=== PATIENT | female | born 2000 | race African-American/Black ===

== ENCOUNTER 2020-05-22 14:04 | Emergency (ER) | payer MEDICAID, OTHER ==
[~2020-05-22] VITALS: Ht 172.7 cm; Wt 81.6 kg
[2020-05-22 14:21] VITALS: BP 133/83
[2020-05-22] MEDS ORDERED: LIDOCAINE/EPI 2% 1:100,00 (XYLOCAINE) 20 ML VIAL INJ ONE (14:45)
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
== END 2020-05-22 15:39 | disposition home or self-care (01) ==
LOC: ER 14:09
DX: S01.21XA Laceration without foreign body of nose, initial encounter (principal); R40.2410 Glasgow coma scale score 13-15, unspecified time; F17.210 Nicotine dependence, cigarettes, uncomplicated; Y04.2XXA Assault by strike against or bumped into by another person, initial encounter
CPT/HCPCS: 99284

== ENCOUNTER 2020-05-28 15:26 | Emergency (ER) | payer MEDICAID ==
[~2020-05-28] VITALS: Ht 170 cm; Wt 82.0 kg
[2020-05-28 15:30] VITALS: BP 118/83
== END 2020-05-28 15:40 | disposition home or self-care (01) ==
LOC: EDUNIT# 15:26 → ER 15:28
DX: S01.91XD Laceration without foreign body of unspecified part of head, subsequent encounter (principal); X58.XXXD Exposure to other specified factors, subsequent encounter